=== PATIENT | male | born 1965 | race Caucasian/White ===

== ENCOUNTER → 2021-01-24 12:31 | Outpatient (CLI) | payer BC, SELFPAY ==
[2021-01-24] MEDS: Lidocaine 2% (5ml sdv) 5 ML VIAL.MPF INFILT (13:05)
--- NOTE | 2021-01-24 13:05 | RAD_ITS ---
EXAM DESCRIPTION: Left hip injection under fluoroscopy CLINICAL HISTORY: 55 years Male, PAIN LFT HIP COMPARISON: None. TECHNIQUE: The procedure was explained to the patient and the skin site was marked and sterilely prepped and draped in usual fashion. FINDINGS: After this, LIDOCAINE was subcutaneously instilled along the expected needle tract. A 22-gauge spinal needle was then inserted into the left hip joint and approximately 5 cc of [id number] was intra-articularly injected to verify the intra-articular position of the needle tip. Following this approximately 10 cc of diluted MRI contrast was intra-articularly injected and the patient was sent to MRI for additional evaluation. RAD/Arthrogram Hip w/ MRI IMPRESSION: Left hip injection of MRI contrast was performed under fluoroscopic guidance as described above. Electronically Signed: Abrahan Whitten DO at 13:58 EDT Tel , Service support ,
[2021-01-24] MEDS: Iopamidol 10 ML in Syringe 1 EACH 600 ML IV (13:10)
--- NOTE | 2021-01-24 13:45 | MRI_ITS ---
STUDY: MRI LEFT HIP ARTHROGRAM REASON FOR EXAM: Male, 55 years old. LEFT hip pain -- arthrogram, NKI TECHNIQUE: Standardized arthrographic weighted pulse sequences were obtained in all 3 orthogonal planes. Please see dedicated arthrogram technique. Intra-articular diluted 10 mL gadolinium solution (0.8 mL gadolinium agent). COMPARISON: None. FINDINGS: Adequate intracapsular distention secondary to intra-articular gadolinium agent. Extensive superior and posterior labral tearing (axial images 8 through 9 series 2, coronal oblique image 9 series 8 and coronal images 5 through 14 series 3). Capsular ligaments intact. Mild/moderate left hip cartilage loss. No acute fracture, dislocation or bone destruction. Mild reactive changes at the left acetabulum (coronal image 13 series 4). Normal gluteus minimus, medius and iliopsoas tendons and distal insertions. No trochanteric, iliopsoas or iliopectineal bursitis. Normal superior and inferior pubic rami. Normal pubic symphysis. Normal ischial tuberosity. Normal origin of the hamstring tendons. Normal visualized iliac wing, sacroiliac joint, and sacral ala. Normal visualized soft tissue structures of the pelvis. MRI/Lower Ext/Jt Only/W Contrast IMPRESSION: Extensive left hip labral tearing Mild/moderate left hip cartilage loss Electronically Signed: Otilio Riley DO at 8:38 EDT Tel , Service support ,
== END ==
LOC: RAD 12:31
PROVIDERS: PCP Family Medicine; Referring Provider Physician Assistant Surgical; Visit Provider Physician Assistant Surgical
DX: S73.192A Other sprain of left hip, initial encounter (principal); X58.XXXA Exposure to other specified factors, initial encounter
CPT/HCPCS: 27093; 73722; 77002; A9575; Q9967